=== PATIENT | female | born 1995 | race Caucasian/White ===

== ENCOUNTER → 2024-11-10 | Outpatient (CLI) | payer BC | LOC: LAB SHORT 18:12 → LAB 18:12 | PROVIDERS: Obstetrics & Gynecology | DX: N93.9 Abnormal uterine and vaginal bleeding, unspecified (principal); Z01.419 Encounter for gynecological examination (general) (routine) without abnormal findings | CPT/HCPCS: 87624; 88305; G0145 ==

== ENCOUNTER 2025-01-08 10:57 | Day surgery (SDC) | payer BC ==
[2025-01-08] VITALS (14 sets, daily range): BP systolic 101–139; BP diastolic 59–100
[~2025-01-08] VITALS: Ht 162.6 cm; Wt 61.9 kg
[~2025-01-08 10:57] MED LIST: Camila0.35 MG PO; CeFAZolin Sodium 2,000 MG in NS 100 ML IV SCH; FERSU300 PO; Prozac40 MG PO
[2025-01-08] MEDS ORDERED: PROP10 PO (11:30)
--- NOTE | 2025-01-08 11:34 | NUR ---
Ambulatory in Day Surgery. History, Chart, Medications and Allergies reviewed before start of procedure. Patient confirms NPO status and agrees with scheduled surgery. Patient reports completing Chlorhexadine shower X2 prior to admission to hospital. Surgical site prepped with 2% Chlorhexidine cloth wipe. Patient States Post-Procedure ride home has been arranged.
[2025-01-08] MEDS ORDERED: Midazolam HCl 1MG / ML 2ML Vial ONE (11:43)
[2025-01-08] MEDS ORDERED: FentaNYL Citrate 50 MCG/ML 2 ML Injection ONE ×2 (11:43→13:49)
[2025-01-08] MEDS ORDERED: HYDROmorphone HCl/Pf 1MG SYR IV PRN ×2 (11:55→15:55)
[2025-01-08] MEDS ORDERED: FentaNYL Citrate 50 MCG/ML 2 ML Injection IV PRN ×2 (11:55)
[2025-01-08] MEDS ORDERED: Ondansetron HCl 2 MG / ML 2ML Vial IV PRN ×2 (12:00→16:00)
[2025-01-08] MEDS ORDERED: Bupivacaine 0.5% W/EPI 1:200000 SDV 30 ML Vial ONE (12:22)
[2025-01-08] MEDS ORDERED: Ketorolac Tromethamine 30mg Vial ONE (13:10)
[2025-01-08] MEDS ORDERED: Dexamethasone Sod Phos 10 MG/ML 1ML VIAL ONE (13:10)
[2025-01-08] MEDS ORDERED: Ondansetron HCl 2 MG / ML 2ML Vial ONE (13:10)
[2025-01-08] MEDS ORDERED: Glycopyrrolate 0.2 MG/ML 5ML VIAL ONE (13:26)
[2025-01-08] MEDS ORDERED: HYDROmorphone HCl/Pf 1MG SYR ONE ×2 (15:01→15:55)
[2025-01-08] MEDS ORDERED: Sugammadex Sodium 200 MG/2ML SDV (100 MG/ML) ONE (15:15)
[2025-01-08] MEDS ORDERED: Metoclopramide HCl 5MG / ML 2ML Vial IV PRN (15:50)
[2025-01-08] MEDS ORDERED: FLU VACC TS2025-26(6MOS UP)/PF 45 MCG/0.5 ML SYRINGE IM SCH (15:55)
[2025-01-08] MEDS ORDERED: Naloxone HCl 0.4MG / ML 1ML Vial IV PRN (16:00)
--- NOTE | 2025-01-08 17:47 | NUR ---
SUMMARY ASSUMED CARE FROM [email or web address]. PT AXO4. VSS. MILD PAIN REPORTED - MEDICATED PER EMAR.DENYING NAUSEA. LAP SITES X4 CDI. ABD MILDLY TENDER TO PALP[ATION. IV FLUIDS INFUSING SLOWLY. SIGNIFICANT OTHER AT BEDSIDE FOR SUPPORT. PT UNSURE OF SHE WANTS TO DC TONIGHT OR NOT. DR DALEY OK IF TONIGHT OR TOMORROW PER PACY REPORT. PAD PRESENT UPON ARRIVAL - HAS NOT REQUIRED CHANGING OUT YET. VS REMAIN STABLE. PT TOLERATING DINNER WELL CURRENTRLY. STATES WILL NEED TO VOID AFTER DINNER - TO WALK TO BATHROOM WITH RN. CALL LIGHT WITHIN REACH.
[2025-01-08] MEDS ORDERED: Ketorolac Tromethamine 30mg Vial IV SCH (18:00)
--- NOTE | 2025-01-08 20:18 | NUR ---
DISCHARGE PATIENT GIVEN D/C INSTRUCTIONS AND EDUCATION. ALL QUESTIONS ANSWERED AND CONCERNS ADDRESSED. IV D/C'ED, PT WHEELED OUT TO CAR BY SOCIAL SERVICES DIRECTOR.
--- NOTE | 2025-01-08 20:23 | NUR ---
DISCHARGE PT S/P HYSTERECTOMY. PT HAS VOIDED, VSS STABLE. PT REPORTS PAIN IS CONTROLLED. SHE REQUESTED DISCHARGE. DISCHARGE ORDER IN PLACE. DISCHARGE COMPLETED BY TANMAY PHILIP RN.
[2025-01-09] MEDS ORDERED: Polyethylene Glycol 3350 17 gm PO SCH (09:00)
[2025-01-09] MEDS ORDERED: Enoxaparin 40 MG/0.4 ML SYR SC SCH (09:00)
== END 2025-01-08 20:30 | disposition home or self-care (01) ==
LOC: ORSCMMR 10:57 → ORD 12:30 → SURS 16:23 → ORSCMMR 20:30
PROVIDERS: Obstetrics & Gynecology
PROC: 0UT94ZZ Resection of Uterus, Percutaneous Endoscopic Approach (ICD-10-PCS; principal; 2025-01-08 12:30)
DX: N93.9 Abnormal uterine and vaginal bleeding, unspecified (principal); D50.9 Iron deficiency anemia, unspecified; Z79.899 Other long term (current) drug therapy
CPT/HCPCS: 88307; A9270; J0690; J1100; J1171; J1885; J2250; J2405; J2704; J3010; J7120; Q9968

== ENCOUNTER → 2025-01-27 | Outpatient (CLI) | payer BC ==
[~2025-01-27] MED LIST changes: -CeFAZolin Sodium 2,000 MG in NS 100 ML IV SCH; +PROP10 PO
[2025-01-27 17:04] LABS: Bacterial Vaginosis PCR Negative (NEGATIVE); Candida Group, PCR NOT DETECTED (NOT DETECT); Candida glabrata-krusei, PCR NOT DETECTED (NOT DETECT)
== END ==
LOC: LAB 12:18 → LAB SHORT 12:18
PROVIDERS: Obstetrics & Gynecology
DX: N89.8 Other specified noninflammatory disorders of vagina (principal)
CPT/HCPCS: 81515